=== PATIENT | male | born 1985 | race Caucasian/White ===

== ENCOUNTER 2020-12-13 12:38 | Emergency (ER) | payer OTHER ==
[~2020-12-13] VITALS: Ht 172.7 cm; Wt 86.2 kg
[2020-12-13] MEDS ORDERED: IBUPROFEN 800800 M1 PO (13:31)
[2020-12-13] MEDS ORDERED: CEPHALEXIN500 MG PO (13:31)
[2020-12-13] MEDS ORDERED: BACTRIM DS TAB1 EACH PO (13:31)
[2020-12-13] MEDS ORDERED: HYDROCODON-ACE1 EAC7 PO (13:34)
[2020-12-13 13:48] VITALS: BP 124/72
== END 2020-12-13 13:49 | disposition home or self-care (01) ==
LOC: M.ERS 12:38
DX: L03.114 Cellulitis of left upper limb (principal); Z90.49 Acquired absence of other specified parts of digestive tract